=== PATIENT | male | born 1985 | race Caucasian/White ===

== ENCOUNTER 2017-07-03 19:37 | Inpatient (IN) | payer MEDICAID ==
[~2017-07-03] VITALS: Ht 182.9 cm; Wt 67.8 kg
[2017-07-03 20:27] LABS: MEAN CORPUSCULAR HEMOGLOBIN 31.8 pg (27.5-34.5); MEAN CORPUSCULAR HGB CONC 33.8 g/dL (33.2-36.2); MEAN CORPUSCULAR VOLUME 94.1 fL (81-97); MEAN PLATELET VOLUME 8.2 fL (7.4-10.4); PLATELET COUNT 206 x10^3/uL (130-400); RED BLOOD COUNT 5.19 x10^6/uL (4.38-5.82); RED CELL DISTRIBUTION WIDTH 12.4 % (9.4-14.8)
[2017-07-03 20:34] LABS: ALBUMIN 3.8 g/dL (3.4-5.0); ANION GAP 8 mmol/L (5-15); CALCIUM 9.6 mg/dL (8.5-10.1); CHLORIDE 103 mmol/L (98-107); CREATININE 1.18 mg/dL (0.7-1.3)
[2017-07-03 20:47] LABS: CULTURE INDICATED? YES; MICROSCOPIC INDICATED
[2017-07-03 20:59] LABS: BASOPHILS # (AUTO) 0.01 x10^3/uL (0-0.1); BASOPHILS % (AUTO) 0 % (0-1); EOSINOPHILS # (AUTO) 0.01 x10^3/uL (0-0.4); EOSINOPHILS % (AUTO) 0 % (1-7); LYMPHOCYTES # (AUTO) 0.67 x10^3/uL (1-3.4); LYMPHOCYTES % (AUTO) 3 % (22-44); MD SCAN; MONOCYTES # (AUTO) 0.64 x10^3/uL (0.2-0.8); MONOCYTES % (AUTO) 3 % (2-9); NEUTROPHILS % (AUTO) 94 % (42-75)
[2017-07-03] MEDS ORDERED: SODIUM CHLORIDE 0.9% 1,000 ML IV ONE (21:24)
[2017-07-03] MEDS ORDERED: SODIUM CHLORIDE 0.9% 1,000ML IVBOLUS ONE ×2 (21:30)
[2017-07-03] MEDS ORDERED: ONDANSETRON 2MG/ML, 2ML IVPush ONE (21:30)
[2017-07-03] MEDS ORDERED: ACETAMINOPHEN 500 MG TABLET PO ONE (21:30)
[2017-07-03] MEDS ORDERED: MORPHINE SULFATE 4 MG/ML, 1ML IVPush PRN (21:30)
[2017-07-03] MEDS ORDERED: CEFTRIAXONE PMX 1GM/50ML 50 ML IV ONE (21:30)
[2017-07-03] MEDS ORDERED: CEFTRIAXONE PMX 1GM/50ML 50 ML ONE (21:39)
[2017-07-03] MEDS ORDERED: ACETAMINOPHEN 500 MG TABLET ONE (21:40)
[2017-07-03] MEDS ORDERED: ONDANSETRON 2MG/ML, 2ML ONE (21:40)
[2017-07-03] MEDS ORDERED: MORPHINE SULFATE 4 MG/ML, 1ML ONE (21:40)
[2017-07-03] MEDS ORDERED: LABETALOL 5MG/ML, 20ML IVPush PRN (22:00)
[2017-07-03] MEDS ORDERED: DOCUSATE 100 MG CAPSULE PO PRN (22:00)
[2017-07-03] MEDS ORDERED: BISACODYL 10 MG SUPP PR PRN (22:00)
[2017-07-03] MEDS ORDERED: POLYETHYLENE GLYCOL 17 GM PACKET PO PRN (22:00)
[2017-07-03] MEDS ORDERED: ONDANSETRON 2MG/ML, 2ML IVPush PRN (22:00)
[2017-07-03] MEDS ORDERED: ACETAMINOPHEN 325 MG TABLET PO PRN (22:00)
[2017-07-03] MEDS ORDERED: CEFTRIAXONE PMX 1GM/50ML 50 ML IV SCH (22:30)
[2017-07-03 23:11] LABS: RAPID INFLUENZA A Negative (Negative); RAPID INFLUENZA B Negative (Negative)
[2017-07-04] MEDS ORDERED: ENOXAPARIN 40 MG/0.4 ML ONE (00:53)
[2017-07-04] MEDS: ENOXAPARIN 40 MG/0.4 ML SQ SCH ×2 (00:57→22:00)
[2017-07-04] MEDS ORDERED: NS + 20MEQ KCL 1,000 ML IV ONE ×2 (01:40→09:26)
[2017-07-04] MEDS: NS + 20MEQ KCL 1,000 ML IV SCH ×4 (01:46→21:59)
[2017-07-04 06:55] LABS: BASOPHILS # (AUTO) 0.01 x10^3/uL (0-0.1); BASOPHILS % (AUTO) 0 % (0-1); EOSINOPHILS # (AUTO) 0.05 x10^3/uL (0-0.4); EOSINOPHILS % (AUTO) 0 % (1-7); LYMPHOCYTES # (AUTO) 1.55 x10^3/uL (1-3.4); LYMPHOCYTES % (AUTO) 13 % (22-44); MD NO; MEAN CORPUSCULAR HEMOGLOBIN 31.9 pg (27.5-34.5); MEAN CORPUSCULAR HGB CONC 34.2 g/dL (33.2-36.2); MEAN CORPUSCULAR VOLUME 93.4 fL (81-97); MEAN PLATELET VOLUME 8.4 fL (7.4-10.4); MONOCYTES # (AUTO) 0.91 x10^3/uL (0.2-0.8); MONOCYTES % (AUTO) 8 % (2-9); NEUTROPHILS % (AUTO) 79 % (42-75); PLATELET COUNT 159 x10^3/uL (130-400); RED BLOOD COUNT 4.22 x10^6/uL (4.38-5.82); RED CELL DISTRIBUTION WIDTH 12.5 % (9.4-14.8)
[2017-07-04 07:00] LABS: ANION GAP 7 mmol/L (5-15); CHLORIDE 110 mmol/L (98-107); CREATININE 0.77 mg/dL (0.7-1.3)
[2017-07-04] MEDS ORDERED: ACETAMINOPHEN 325 MG TABLET ONE (07:03)
[2017-07-04] MEDS ORDERED: PROCHLORPERAZINE 5 MG/ML, 2ML ONE (09:00)
[2017-07-04] MEDS ORDERED: ONDANSETRON 2MG/ML, 2ML ONE (09:00)
[2017-07-04] MEDS ORDERED: DIPHENHYDRAMINE 50 MG/ML, 1ML ONE (09:00)
[2017-07-04] MEDS: GUAIFENESIN ER 600 MG TABLET PO SCH ×2 (09:44→20:26)
[2017-07-04] MEDS: DOXYCYCLINE 100 MG in DEXTROSE 5% 250 ML IV SCH ×2 (09:45)
[2017-07-04] MEDS ORDERED: CEFTRIAXONE 1,000 MG in DEXTROSE 5% 50 ML IV SCH ×2 (13:00→21:00)
[2017-07-04 13:05] VITALS: BP 116/75
[2017-07-04] MEDS ORDERED: PHARMACOKINETIC MONITORING MC PRN (14:00)
[2017-07-04] MEDS ORDERED: PIPERACILLIN/TAZO/PMX 4.5GM 100 ML IV SCH (14:00)
[2017-07-04] MEDS ORDERED: VANCOMYCIN PER PHARMACY MC PRN (14:00)
[2017-07-04] MEDS: PIPERACILLIN/TAZO 4.5 GM in SODIUM CHLORIDE 0.9% 100 ML IV SCH ×2 (14:41→20:26)
[2017-07-04] MEDS: VANCOMYCIN 1,200 MG in SODIUM CHLORIDE 0.9% 250 ML IV SCH (15:39)
[2017-07-04 18:31] VITALS: BP 125/73
[2017-07-05 01:15] VITALS: BP 113/57
[2017-07-05] MEDS: PIPERACILLIN/TAZO 4.5 GM in SODIUM CHLORIDE 0.9% 100 ML IV SCH ×4 (02:34→20:17)
[2017-07-05] MEDS: VANCOMYCIN 1,200 MG in SODIUM CHLORIDE 0.9% 250 ML IV SCH ×2 (03:09→15:29)
[2017-07-05 06:49] LABS: BASOPHILS # (AUTO) 0.02 x10^3/uL (0-0.1); BASOPHILS % (AUTO) 0 % (0-1); EOSINOPHILS # (AUTO) 0.12 x10^3/uL (0-0.4); EOSINOPHILS % (AUTO) 2 % (1-7); LYMPHOCYTES # (AUTO) 1.29 x10^3/uL (1-3.4); LYMPHOCYTES % (AUTO) 17 % (22-44); MD NO; MEAN CORPUSCULAR HEMOGLOBIN 32.1 pg (27.5-34.5); MEAN CORPUSCULAR HGB CONC 34.4 g/dL (33.2-36.2); MEAN CORPUSCULAR VOLUME 93.4 fL (81-97); MEAN PLATELET VOLUME 8.3 fL (7.4-10.4); MONOCYTES # (AUTO) 0.56 x10^3/uL (0.2-0.8); MONOCYTES % (AUTO) 8 % (2-9); NEUTROPHILS # (AUTO) 5.51 x10^3/uL (1.8-6.8); NEUTROPHILS % (AUTO) 74 % (42-75); PLATELET COUNT 171 x10^3/uL (130-400); RED BLOOD COUNT 4.18 x10^6/uL (4.38-5.82); RED CELL DISTRIBUTION WIDTH 12.3 % (9.4-14.8)
[2017-07-05 06:59] VITALS: BP 119/60
[2017-07-05 07:00] LABS: ALBUMIN 2.9 g/dL (3.4-5.0); ANION GAP 9 mmol/L (5-15); CALCIUM 8.4 mg/dL (8.5-10.1); CHLORIDE 111 mmol/L (98-107)
[2017-07-05 07:01] LABS: CREATININE 0.89 mg/dL (0.7-1.3)
[2017-07-05] MEDS: GUAIFENESIN ER 600 MG TABLET PO SCH ×2 (08:10→20:17)
[2017-07-05 09:32] LABS: CLOSTRIDIUM DIFFICILE ANTIGEN NEGATIVE; CLOSTRIDIUM DIFFICILE TOXIN NEGATIVE (Negative)
[2017-07-05 14:01] VITALS: BP 115/73
[2017-07-05 20:28] VITALS: BP 129/81
[2017-07-05] MEDS: ENOXAPARIN 40 MG/0.4 ML SQ SCH (22:00)
[2017-07-06 01:08] VITALS: BP 118/68
[2017-07-06] MEDS: PIPERACILLIN/TAZO 4.5 GM in SODIUM CHLORIDE 0.9% 100 ML IV SCH ×2 (02:23→09:38)
[2017-07-06] MEDS: VANCOMYCIN 1,200 MG in SODIUM CHLORIDE 0.9% 250 ML IV SCH (03:03)
[2017-07-06 07:54] VITALS: BP 122/73
[2017-07-06] MEDS: GUAIFENESIN ER 600 MG TABLET PO SCH ×2 (09:38→20:58)
[2017-07-06 13:56] VITALS: BP 119/80
[2017-07-06] MEDS: CEFTRIAXONE PMX 2GM/50ML 50 ML IV SCH (14:57)
[2017-07-06 19:01] VITALS: BP 128/79
[2017-07-07 00:29] VITALS: BP 114/75
[2017-07-07] MEDS: ENOXAPARIN 40 MG/0.4 ML SQ SCH (01:00)
[2017-07-07] MEDS: GUAIFENESIN ER 600 MG TABLET PO SCH (09:20)
[2017-07-07 09:38] VITALS: BP 116/66
[2017-07-07] MEDS: CEFTRIAXONE PMX 2GM/50ML 50 ML IV SCH (13:51)
[2017-07-07 14:18] VITALS: BP 127/66
[2017-07-07] MEDS ORDERED: PENI500T PO (15:09)
== END 2017-07-07 16:30 | disposition home or self-care (01) | DRG 871 ==
LOC: ED 22:02 → EDIP 22:05 → 3NW 07-04 12:37
PROVIDERS: ADMIT Internal Medicine; ATTEND Internal Medicine
DX: A40.3 Sepsis due to Streptococcus pneumoniae (principal); E43 Unspecified severe protein-calorie malnutrition; J15.9 Unspecified bacterial pneumonia; N39.0 Urinary tract infection, site not specified; B95.3 Streptococcus pneumoniae as the cause of diseases classified elsewhere; D64.9 Anemia, unspecified; F12.90 Cannabis use, unspecified, uncomplicated; Z83.3 Family history of diabetes mellitus; M54.5 Low back pain; Z90.49 Acquired absence of other specified parts of digestive tract; Z68.20 Body mass index [BMI] 20.0-20.9, adult
CPT/HCPCS: 36415; 74176; 80048; 81001; 82040; 83605; 83735; 84145; 85025; 87040; 87086; 87181; 87184; 87324; 87400; 93308; 93325; 96365; 96375; J0696; J1650; J2405; J3370; J3480; J7060; J7030; J7050